=== PATIENT | male | born 1950 | race Two or more races ===

== ENCOUNTER 2018-09-13 13:32 | Emergency (ER) | payer MEDICARE, BC ==
[~2018-09-13] VITALS: Ht 170.2 cm; Wt 77.6 kg
[~2018-09-13 13:32] MED LIST: FLO0.4C PO; LEVO750T21 PO; NO HOME MEDS
--- NOTE | 2018-09-13 14:27 | NUR ---
PT AMBULATORY TO THE BATHROOM WITH A STEADY GAIT, PT REPORTS SOME LIGHTHEADEDNESS BUT IS STEADY ON FEET, PT TO PROVIDE URINE SAMPLE PER ORDERS
[2018-09-13 14:31] LABS: BASOPHILS % (AUTO) 0.6 % (0-1); EOSINOPHILS % (AUTO) 0.6 % (0-6); HEMATOCRIT 50.4 % (42.0-52.0); HEMOGLOBIN 16.2 g/dl (14.0-17.9); LYMPHOCYTES # (AUTO) 1.3 X10'3 (1.1-4.8); MEAN CORPUSCULAR HGB CONC 32.1 % (33.0-36.5); MEAN CORPUSCULAR VOLUME 96.4 FL (78-98); MEAN PLATELET VOLUME 10.5 FL (7.4-10.4); MONOCYTES # (AUTO) 0.9 X10'3 (0-0.9); MONOCYTES % (AUTO) 12.2 % (2-12); NEUTROPHILS # (AUTO) 5.3 X10'3 (1.8-7.7); NEUTROPHILS % (AUTO) 69.6 % (42-75); PLATELET COUNT 170 X10'3 (140-440); RED BLOOD COUNT 5.23 X10'6 (4.70-6.10); RED CELL DISTRIBUTION WIDTH 12.9 % (11.5-14.5); WHITE BLOOD COUNT 7.5 X10'3 (4.5-11.0)
[2018-09-13 14:42] LABS: CLARITY,URINE TURBID (Clear); COLOR,URINE YELLOW (Yellow); GLUCOSE, URINE NEGATIVE (Neg); KETONES,URINE NEGATIVE (Neg); LEUKOCYTE ESTERASE ,URINE TRACE (Neg); NITRITES, URINE NEGATIVE (Neg); OCCULT BLOOD,URINE LARGE (Neg); PROTEIN,URINE 100 mg/dl (Neg); UROBILINOGEN,URINE 0.2 E.U/dL (0.2-1.0)
[2018-09-13 14:42] LABS: ALANINE AMINOTRANSFERASE 22 U/L (12-78); ALBUMIN 3.3 G/DL (3.4-5.0); ALBUMIN/GLOBULIN RATIO 0.9 (1.1-1.5); ALKALINE PHOSPHATASE 78 IU/L (46-116); ANION GAP 10 (8-16); ASPARTATE AMINO TRANSFERASE 14 U/L (10-37); BILIRUBIN,TOTAL 0.5 MG/DL (0.1-1.0); BLOOD UREA NITROGEN 26 MG/DL (7-18); BUN/CREATININE RATIO 22.4 (5.4-32.0); CALCIUM 9.1 MG/DL (8.5-10.1); CHLORIDE 104 MMOL/L (99-107); CREATININE 1.16 MG/DL (0.60-1.10); GLUCOSE 99 MG/DL (70-104); POTASSIUM 4.1 MMOL/L (3.5-5.1); SODIUM 139 MMOL/L (135-145); TOTAL CARBON DIOXIDE 24.8 MMOL/L (24-32); eGFR 62 ML/MIN
[2018-09-13 14:43] LABS: UA COLLECTION TYPE VOIDED
[2018-09-13 14:58] LABS: BACTERIA,URINE 4+ /HPF (Neg); MUCUS STRANDS MODERATE /LPF (Neg); RBC,URINE TNTC /HPF (0-2); SQUAMOUS EPITHELIAL CELL,UR FEW /LPF (FEW); WBC,URINE 30-50 /HPF (0-4)
[2018-09-13] MEDS ORDERED: CEPH500C5 PO (15:49)
[2018-09-13] MEDS ORDERED: cephalexin 250mg capsule PO ONE (15:50)
[2018-09-13 15:55] VITALS: BP 123/78
== END 2018-09-13 16:17 | disposition home or self-care (01) ==
LOC: ER 13:33
DX: N99.89 Other postprocedural complications and disorders of genitourinary system (principal); R31.9 Hematuria, unspecified; R42 Dizziness and giddiness; R50.9 Fever, unspecified; Z88.0 Allergy status to penicillin; Z79.2 Long term (current) use of antibiotics; Z79.899 Other long term (current) drug therapy; Z86.73 Personal history of transient ischemic attack (TIA), and cerebral infarction without residual deficits; Z86.718 Personal history of other venous thrombosis and embolism; Z90.49 Acquired absence of other specified parts of digestive tract
CPT/HCPCS: 36415; 80053; 81001; 84145; 85025; 87077; 87088; 87186; 99283

== ENCOUNTER 2022-07-23 12:50 | Emergency (ER) | payer MEDICARE, BC ==
[~2022-07-23] VITALS: Ht 170.2 cm; Wt 66.8 kg
[2022-07-23 13:04] VITALS: BP 122/62
[2022-07-23 13:57] LABS: BASOPHILS % (AUTO) 0.3 % (0-1); EOSINOPHILS % (AUTO) 0.3 % (0-6); HEMATOCRIT 41.6 % (42.0-52.0); HEMOGLOBIN 13.5 g/dl (14.0-17.9); LYMPHOCYTES # (AUTO) 1.1 X10'3 (1.1-4.8); LYMPHOCYTES % (AUTO) 8.7 % (21-51); MEAN CORPUSCULAR HGB CONC 32.5 g/dL (33.0-36.5); MEAN CORPUSCULAR VOLUME 95.4 FL (78-98); MEAN PLATELET VOLUME 8.4 FL (7.4-10.4); MONOCYTES # (AUTO) 1.1 X10'3 (0-0.9); MONOCYTES % (AUTO) 9.4 % (2-12); NEUTROPHILS # (AUTO) 9.8 X10'3 (1.8-7.7); NEUTROPHILS % (AUTO) 81.3 % (42-75); PLATELET COUNT 406 X10'3 (140-440); RED BLOOD COUNT 4.36 X10'6 (4.70-6.10); RED CELL DISTRIBUTION WIDTH 13.1 % (11.5-14.5); WHITE BLOOD COUNT 12.1 X10'3 (4.5-11.0)
[2022-07-23 14:02] LABS: CLARITY,URINE CLEAR (Clear); COLOR,URINE YELLOW (Yellow); GLUCOSE, URINE NEGATIVE (Neg); KETONES,URINE NEGATIVE (Neg); LEUKOCYTE ESTERASE ,URINE NEGATIVE (Neg); NITRITES, URINE NEGATIVE (Neg); OCCULT BLOOD,URINE TRACE-INTACT (Neg); PROTEIN,URINE NEGATIVE (Neg); UROBILINOGEN,URINE 0.2 E.U/dL (0.2-1.0)
[2022-07-23 14:11] LABS: ALANINE AMINOTRANSFERASE 19 U/L (12-78); ALBUMIN 2.7 G/DL (3.4-5.0); ALBUMIN/GLOBULIN RATIO 0.6 (1.1-1.5); ALKALINE PHOSPHATASE 86 IU/L (46-116); ANION GAP 12 (8-16); ASPARTATE AMINO TRANSFERASE 16 U/L (10-37); BILIRUBIN,TOTAL 0.4 MG/DL (0.1-1.0); BLOOD UREA NITROGEN 18 MG/DL (7-18); BUN/CREATININE RATIO 16.2 (5.4-32.0); CALCIUM 9.1 MG/DL (8.5-10.1); CHLORIDE 101 MMOL/L (99-107); CREATININE 1.11 MG/DL (0.60-1.10); GLUCOSE 105 MG/DL (70-104); POTASSIUM 3.9 MMOL/L (3.5-5.1); SODIUM 134 MMOL/L (135-145); TOTAL CARBON DIOXIDE 21.5 MMOL/L (24-32); TOTAL PROTEIN 7.1 G/DL (6.4-8.2); eGFR 65 ML/MIN
[2022-07-23 14:13] LABS: UA COLLECTION TYPE NON-SPECIFIED
[2022-07-23 14:16] LABS: BACTERIA,URINE NONE SEEN /HPF (Neg); MUCUS STRANDS NONE SEEN /LPF (Neg); RBC,URINE 0-2 /HPF (0-2); SQUAMOUS EPITHELIAL CELL,UR FEW /LPF (FEW); WBC,URINE 0-4 /HPF (0-4)
[2022-07-24] MEDS ORDERED: PANT20TA18 PO (08:16)
== END 2022-07-23 22:01 | disposition left against medical advice (07) ==
LOC: ER 12:50
DX: M54.9 Dorsalgia, unspecified (principal); Z53.21 Procedure and treatment not carried out due to patient leaving prior to being seen by health care provider
CPT/HCPCS: 36415; 80053; 81001; 85025

== ENCOUNTER 2022-07-24 04:36 | Emergency (ER) | payer MEDICARE, BC ==
[~2022-07-24] VITALS: Ht 170.2 cm; Wt 63.6 kg
[2022-07-24] MEDS ORDERED: acetaminophen 325mg tablet PO ONE (05:00)
[2022-07-24] MEDS ORDERED: ketorolac tromethamine 15mg/ml inj. IV ONE (05:00)
--- NOTE | 2022-07-24 05:22 | NUR ---
Cordwainer agrees with Tori Goss, MARV assessment.
--- NOTE | 2022-07-24 05:42 | NUR ---
Pts labs and ua were cancelled as he was here in the lobby last night and had orders that were carried out so Dr said that was fine.
[2022-07-24] MEDS ORDERED: PANT20TA18 PO (08:16)
[2022-07-24 08:50] VITALS: BP 115/63
== END 2022-07-24 08:52 | disposition home or self-care (01) ==
LOC: ER 04:38
DX: R10.30 Lower abdominal pain, unspecified (principal); M54.59 Other low back pain; R19.7 Diarrhea, unspecified; Z88.0 Allergy status to penicillin; Z79.899 Other long term (current) drug therapy; I51.9 Heart disease, unspecified
CPT/HCPCS: 74176; 96374; 99284; J1885